=== PATIENT | male | born 1935 | race Caucasian/White ===

== ENCOUNTER → 2019-01-19 | Day surgery (SDC) | payer OTHER ==
[~2019-01-19] VITALS: Ht 172.7 cm; Wt 88.5 kg
[~2019-01-19] MED LIST: ATOXIMETIN-B1 CAP PO; FLOMAX0.4 MG PO; HYDROCODONE BIT1 T11 PO; KEFLEX500 MG PO; MOBIC15 MG PO; OMEPRAZOLE40 MG PO; VITAMIN D-32000 UNI1 PO; VITAMIN E100 UNI3 PO; VOLTAREN1% TP; ZOCOR80 MG PO
--- NOTE | ~2019-01-19 | O ---
[place], [place] OPERATIVE NOTE NAME: ISAIAH THOMPSON SR UNIT #: [id number] ROOM: DOCTOR: ROBERT ELLIS MD BIRTHDATE: [birth year] DOS: 01/19/2019 GASTROENDOSCOPIC REPORT INDICATIONS: The patient is an 83-year-old with a chief complaint of dysphagia to solid food. PAST MEDICAL HISTORY: Benign prostatic hypertrophy, COPD, hyperlipidemia and gastritis. SOCIAL HISTORY: Smoker, nonalcohol consumer. FAMILY HISTORY: Mother with colonic carcinoma. PAST SURGICAL HISTORY: Total knee, left back, cholecystectomy, right inguinal hernia. PROCEDURE: Today's procedure part of investigation is panendoscopy plus biopsy plus balloon esophageal dilation to size 19. PREMEDICATION: Propofol. SCOPE: Olympus forward-viewing gastroscope Q10 video. REPORT: After putting the patient in left lateral position and application of lubricant to the scope, the scope was introduced. Thereafter, under direct visualization, advanced through the length of esophagus without difficulty. Small hiatal hernia was noticed. Gastric pouch was entered. Gastritis seen. Antral biopsy obtained for H. pylori. Duodenal bulb, second and third part within normal limit. Scope was withdrawn back to the gastric pouch. GI reflection of the scope reveals cardia to be benign. Hiatal hernia was confirmed photographed. A balloon size 20 was introduced into gastric pouch up to size 19 was tolerable for the patient to dilate the esophagus in general and particularly ____ esophagus to size 19. The patient extubated, tolerated the procedure well. IMPRESSION: Benign esophageal stricture, status post balloon dilation to size 19, small hiatal hernia, gastritis, status post antral biopsy. PLAN AND DISCUSSION: Supportive therapy, omeprazole 40 mg day. Advised to abstain from smoking. Follow up as outpatient. Thank you very much indeed for your kind referral. [place], [place] OPERATIVE NOTE NAME: ISAIAH THOMPSON SR UNIT #: [id number] ROOM: DOCTOR: ROBERT ELLIS MD BIRTHDATE: [birth year] ROBERT ELLIS MD CM:OPRECORD:OPERATIVE NOTE [id number] ROBERT ELLIS MD 01/19/19 1503 interface
[2019-01-19 12:59] VITALS: BP 135/48
[2019-01-19 14:20] VITALS: BP 125/50
[2019-01-19 14:35] VITALS: BP 131/80
[2019-01-19 14:49] VITALS: BP 143/68
== END | disposition home or self-care (01) ==
LOC: SDC 01-16 11:45
DX: K29.50 Unspecified chronic gastritis without bleeding (principal); K44.9 Diaphragmatic hernia without obstruction or gangrene; E78.5 Hyperlipidemia, unspecified; J44.9 Chronic obstructive pulmonary disease, unspecified; Z90.49 Acquired absence of other specified parts of digestive tract; Z98.890 Other specified postprocedural states; Z79.899 Other long term (current) drug therapy; Z80.8 Family history of malignant neoplasm of other organs or systems

== ENCOUNTER 2019-09-06 12:05 | Emergency (ER) | payer OTHER ==
[~2019-09-06] VITALS: Ht 172.7 cm; Wt 81.6 kg
[2019-09-06 12:11] VITALS: BP 135/67
== END 2019-09-06 14:45 | disposition home or self-care (01) ==
LOC: ED 12:05
DX: S46.912A Strain of unspecified muscle, fascia and tendon at shoulder and upper arm level, left arm, initial encounter (principal); Z79.899 Other long term (current) drug therapy; X50.9XXA Other and unspecified overexertion or strenuous movements or postures, initial encounter; X50.1XXA Overexertion from prolonged static or awkward postures, initial encounter; Y93.89 Activity, other specified; Y92.89 Other specified places as the place of occurrence of the external cause; Y99.8 Other external cause status

== ENCOUNTER → 2021-09-03 | Day surgery (SDC) | payer OTHER ==
[~2021-09-03] VITALS: Ht 172.7 cm; Wt 84.4 kg
[~2021-09-03] MED LIST changes: +PERCOCET 5-3251 EACH PO
[2021-09-03 09:00] VITALS: BP 132/58
[2021-09-03 10:15] VITALS: BP 102/55
[2021-09-03 10:29] VITALS: BP 104/56
[2021-09-03 10:40] VITALS: BP 115/55
== END | disposition home or self-care (01) ==
LOC: SDC 08-31 13:15
PROVIDERS: ATTEND Surgery
DX: L72.3 Sebaceous cyst (principal); L90.5 Scar conditions and fibrosis of skin; K21.9 Gastro-esophageal reflux disease without esophagitis; Z98.42 Cataract extraction status, left eye; L92.8 Other granulomatous disorders of the skin and subcutaneous tissue; Z98.41 Cataract extraction status, right eye; E78.00 Pure hypercholesterolemia, unspecified; Z96.651 Presence of right artificial knee joint; Z98.890 Other specified postprocedural states; Z79.899 Other long term (current) drug therapy

== ENCOUNTER 2021-09-28 14:19 | Emergency (ER) | payer OTHER ==
[~2021-09-28] VITALS: Ht 172.7 cm; Wt 84.4 kg
[2021-09-28 14:46] VITALS: BP 147/55
[2021-09-28 16:11] LABS: BILIRUBIN Negative (Negative); BLOOD Negative (Negative); CLARITY Clear (Clear); COLOR Yellow (Yellow); GLUCOSE Negative (Negative); KETONE Negative (Negative); LEUKO ESTERASE Negative (Negative); NITRITE Negative (Negative); PH 5.5 (4.5-8.0); UROBILINOGEN 0.2 E.U./dl (0.0-1.0)
[2021-09-28 16:24] LABS: BACTERIA TRACE; EPITHELIAL CELLS 0-2; WBC 0-2 wbc/hpf (0-5)
[2021-09-28 16:47] LABS: BASO # 0.1 10*3/uL (0.0-0.1); BASO % 0.7 % (0.0-1.0); EOS # 0.3 10*3/uL (0.0-0.4); EOS % 3.5 % (1.0-4.0); HEMATOCRIT 39.9 % (42.0-52.0); LYMPH % 14.4 % (27.0-41.0); MEAN CELL VOLUME 97.8 fl (80.0-94.0); MEAN CORPUSCULAR HGB 31.6 pg (27.0-31.0); MEAN CORPUSCULAR HGB CONC 32.3 g/dl (33.0-37.0); MEAN PLATELET VOLUME 11.9 fl (9.6-12.3); MONO # 0.7 10*3/uL (0.1-1.0); MONO % 9.3 % (3.0-9.0); NEUT # 5.2 10*3/uL (2.3-7.9); NEUT % 71.7 % (47.0-73.0); PLATELET COUNT AUTOMATED 151 10*3/uL (130-400); RED BLOOD COUNT 4.08 10*6/uL (4.50-5.90); RED CELL DISTRI WIDTH 12.8 % (0-14.5); WHITE BLOOD COUNT 7.2 10*3/uL (4.8-10.8)
[2021-09-28 17:07] LABS: ALKALINE PHOSPHATASE 60 U/L (45-117); BUN 14 mg/dl (7-24); CHLORIDE 107 mmol/L (98-107); CREATININE 1.16 mg/dL (0.70-1.30); LIPASE 85 U/L (73-393); POTASSIUM 4.6 mmol/L (3.5-5.1); SGOT/AST 15 IU/L (3-35); SGPT/ALT 20 U/L (12-78); SODIUM 137 mmol/L (136-145); TOTAL PROTEIN 7.4 gm/dL (6.4-8.2)
[2021-09-28] MEDS ORDERED: METRONIDAZOLE500 M1 PO (19:37)
[2021-09-28] MEDS ORDERED: CIPROFLOXACIN500 M4 PO (19:37)
== END 2021-09-28 19:44 | disposition home or self-care (01) ==
LOC: ED 14:19
PROVIDERS: Physician Assistant
DX: K57.32 Diverticulitis of large intestine without perforation or abscess without bleeding (principal); Z79.899 Other long term (current) drug therapy

== ENCOUNTER → 2022-02-12 | Outpatient (CLI) | payer OTHER ==
[~2022-02-12] MED LIST changes: +CIPROFLOXACIN500 M4 PO; +METRONIDAZOLE500 M1 PO
== END | disposition home or self-care (01) ==
LOC: US 01:11
PROVIDERS: ATTEND Family Medicine
DX: I65.23 Occlusion and stenosis of bilateral carotid arteries (principal)

== ENCOUNTER → 2022-04-08 | Outpatient (CLI) | payer OTHER | END | disposition home or self-care (01) | LOC: CARD 01:18 | PROVIDERS: ATTEND Family Medicine | DX: I08.0 Rheumatic disorders of both mitral and aortic valves (principal) ==

== ENCOUNTER 2022-08-01 13:14 | Emergency (ER) | payer OTHER ==
[~2022-08-01] VITALS: Ht 170.1 cm; Wt 86.2 kg
[2022-08-01 13:29] LABS: BASO % 0.3 % (0.0-1.0); EOS # 0.1 10*3/uL (0.0-0.4); EOS % 1.7 % (1.0-4.0); HEMATOCRIT 44.4 % (42.0-52.0); LYMPH % 14.2 % (27.0-41.0); MEAN CELL VOLUME 95.1 fl (80.0-94.0); MEAN CORPUSCULAR HGB 31.7 pg (27.0-31.0); MEAN CORPUSCULAR HGB CONC 33.3 g/dl (33.0-37.0); MEAN PLATELET VOLUME 11.3 fl (9.6-12.3); MONO # 0.4 10*3/uL (0.1-1.0); MONO % 5.7 % (3.0-9.0); NEUT # 5.6 10*3/uL (2.3-7.9); NEUT % 77.7 % (47.0-73.0); PLATELET COUNT AUTOMATED 163 10*3/uL (130-400); RED BLOOD COUNT 4.67 10*6/uL (4.50-5.90); RED CELL DISTRI WIDTH 12.3 % (0-14.5); WHITE BLOOD COUNT 7.2 10*3/uL (4.8-10.8)
[2022-08-01 13:40] LABS: ACT PARTIAL THROMBO TIME 25.9 SECONDS (20.0-32.1)
[2022-08-01 15:19] LABS: ALKALINE PHOSPHATASE 60 U/L (46-116); BUN 12 mg/dl (9-23); CHLORIDE 106 mmol/L (98-107); POTASSIUM 4.2 mmol/L (3.4-5.1); SGPT/ALT 17 U/L (10-49); TOTAL PROTEIN 7.3 gm/dL (6.0-8.0)
[2022-08-01 15:30] VITALS: BP 124/54
[2022-08-01] MEDS ORDERED: REGLAN10 M1 PO ×2 (16:55→16:57)
== END 2022-08-01 17:03 | disposition home or self-care (01) ==
LOC: ED 13:14
PROVIDERS: Emergency Medicine
DX: G43.909 Migraine, unspecified, not intractable, without status migrainosus (principal); R07.89 Other chest pain; R10.13 Epigastric pain; E78.00 Pure hypercholesterolemia, unspecified; Z96.651 Presence of right artificial knee joint; Z98.42 Cataract extraction status, left eye; Z98.41 Cataract extraction status, right eye

== ENCOUNTER 2023-12-15 10:24 | Emergency (ER) | payer OTHER ==
[~2023-12-15] VITALS: Ht 172.7 cm; Wt 84.8 kg
[~2023-12-15 10:24] MED LIST changes: +REGLAN10 M1 PO
[2023-12-15] MEDS ORDERED: Ketorolac Tromethamine 30 MG/ML VIAL IM ONE (11:25)
[2023-12-15] MEDS ORDERED: methylPREDNISolone sod succ 125 MG VIAL IM ONE (11:25)
[2023-12-15] MEDS ORDERED: PREDNISONE50 MG PO (12:13)
== END 2023-12-15 12:18 | disposition home or self-care (01) ==
LOC: ED 10:24
DX: M54.42 Lumbago with sciatica, left side (principal); M25.552 Pain in left hip; E78.00 Pure hypercholesterolemia, unspecified; Z90.49 Acquired absence of other specified parts of digestive tract; Z98.890 Other specified postprocedural states

== ENCOUNTER → 2024-01-30 | Outpatient (CLI) | payer OTHER ==
[~2024-01-30] MED LIST changes: +PREDNISONE50 MG PO
== END | disposition home or self-care (01) ==
LOC: MRI 01:51
PROVIDERS: ATTEND Student in an Organized Health Care Education/Training Program
DX: M51.369 Other intervertebral disc degeneration, lumbar region without mention of lumbar back pain or lower extremity pain (principal); M43.16 Spondylolisthesis, lumbar region; M48.061 Spinal stenosis, lumbar region without neurogenic claudication; M54.50 Low back pain, unspecified

== ENCOUNTER 2024-12-22 14:16 | Emergency (ER) | payer OTHER ==
[~2024-12-22] VITALS: Ht 172.7 cm; Wt 83.9 kg
[2024-12-22 14:39] VITALS: BP 141/69
[2024-12-22] MEDS ORDERED: ZITHROMAX250 MG PO (16:03)
[2024-12-22] MEDS ORDERED: MEDROL DOSEPAK4 MG PO (16:03)
[2024-12-22] MEDS ORDERED: AZITHROMYCIN 250 MG TAB PO ONE (16:05)
== END 2024-12-22 16:51 | disposition home or self-care (01) ==
LOC: ED 14:16
DX: J20.9 Acute bronchitis, unspecified (principal); E78.00 Pure hypercholesterolemia, unspecified; Z86.19 Personal history of other infectious and parasitic diseases

== ENCOUNTER 2025-01-29 13:52 | Emergency (ER) | payer OTHER ==
[~2025-01-29] VITALS: Wt 83.9 kg
[~2025-01-29 13:52] MED LIST changes: +MEDROL DOSEPAK4 MG PO; +ZITHROMAX250 MG PO
[2025-01-29 13:59] VITALS: BP 144/69
== END 2025-01-29 16:23 | disposition home or self-care (01) ==
LOC: ED 13:52
DX: M17.12 Unilateral primary osteoarthritis, left knee (principal); J06.9 Acute upper respiratory infection, unspecified; E78.00 Pure hypercholesterolemia, unspecified; Z20.822 Contact with and (suspected) exposure to COVID-19